=== PATIENT | female | born 1990 | race Caucasian/White ===

== ENCOUNTER 2019-02-24 15:10 | Emergency (ER) | payer MEDICAID, OTHER ==
[2019-02-24 15:10] VITALS: BMI 27.3
[2019-02-24 15:17] VITALS: BP 125/80; PULSE 78; RESP 20; TEMP 97.8; O2SAT 98
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
== END 2019-02-24 15:54 | disposition home or self-care (01) ==
LOC: C.ER 15:10
DX: R51 Headache (principal); V49.9XXA Car occupant (driver) (passenger) injured in unspecified traffic accident, initial encounter